=== PATIENT | male | born 1955 | race Caucasian/White ===

== ENCOUNTER 2016-06-12 11:16 | Observation (INO) | payer BC ==
[2016-06-12] MEDS ORDERED: KETOROLAC 30 MG/ML 1 ML VIAL IVP STA (12:09)
[2016-06-12] MEDS ORDERED: HYDROmorphone 1 MG/ML 1 ML SYRINGE IVP STA (12:09)
[2016-06-12] MEDS ORDERED: ONDANSETRON 4 MG/2 ML VIAL IVP STA (12:10)
--- NOTE | 2016-06-12 12:13 | ED ---
Fall HPI - General Chief Complaint: Fall Stated Complaint: fall Time Seen by Provider: 06/12/16 11:36 Source: patient, EMS Mode of arrival: EMS - History of Present Illness Initial Comments: Complaining about back pain, he was working on his trailer hitch, he fell and landed on his back complaining about pain in the lumbar area, pain is quite localized and is not radiating down the legs also he denies any bowel or bladder dysfunction. Denies any head injury or any neck injury is complaining about lower back pain extending to the lower thoracic region and no other complaints at this point no chest pain or shortness of breath or abdominal pain no frequency urgency dysuria - Related Data Home Medications Medication Instructions Recorded Confirmed Ascorbic Acid [Vitamin C] 500 mg PO DAILY 06/12/16 06/12/16 Aspirin 81 mg PO DAILY 06/12/16 06/12/16 Garlic 1 tab PO DAILY 06/12/16 06/12/16 Allergies Allergy/AdvReac Type Severity Reaction Status Date / Time amoxicillin Allergy Rash/Hives Verified 06/12/16 11:42 ampicillin Allergy Rash/Hives Verified 06/12/16 11:42 Review of Systems ROS Statement: Those systems with pertinent positive or pertinent negative responses have been documented in the HPI. ROS Other: All systems not noted in ROS Statement are negative. Past Medical History Past Medical History: No Reported History History of Any Multi-Drug Resistant Organisms: None Reported Additional Past Surgical History / Comment(s): Tear duct left eye Past Psychological History: No Psychological Hx Reported Smoking Status: Current every day smoker Past Alcohol Use History: Rare Past Drug Use History: None Reported General Exam - General Exam Comments Initial Comments: General: The patient is awake and alert, in no distress, and does not appear acutely ill. Skin: Skin is warm and dry and no rashes or lesions are noted. Eye: Pupils are equal, round and reactive to light, extra-ocular movements are intact; there is normal conjunctiva bilaterally. Ears, nose, mouth and throat: There are moist mucous membranes and no oral lesions. Neck: The neck is supple, there is no tenderness or JVD. Cardiovascular: There is a regular rate and rhythm. No murmur, rub or gallop is appreciated. Respiratory: To auscultation bilateral, no wheezing no rhonchi no distress respiratory french noticed Gastrointestinal: Soft, non-distended, non-tender abdomen without masses or organomegaly noted. There is no rebound or guarding present. Bowel sounds are unremarkable. Back: There is no tenderness to palpation in the midline. There is no obvious deformity. Musculoskeletal: He is tender over the L1 and L2 region also tender over the 311 and T12 region, straight leg raise is negative bilaterally, deep tendon reflexes are within normal range Neurological: CN II-XII intact, Cranial nerves III through XII are intact. There are no obvious motor or sensory deficits. Coordination appears grossly intact. Speech is normal. Psychiatric: Cooperative, appropriate mood & affect, normal judgment. Limitations: no limitations Course Vital Signs 06/12/16 06/12/16 11:25 14:34 Temperature 97.0 F L 99.5 F Pulse Rate 83 81 Respiratory 16 18 Rate Blood Pressure 171/68 124/59 O2 Sat by Pulse 97 95 Oximetry Disposition Clinical Impression: Compression fracture of L2, Compression fracture of L1 lumbar vertebra, Intractable back pain Disposition: ADMITTED IP TO THIS HOSP
--- NOTE | 2016-06-12 13:31 | CT ---
EXAMINATION TYPE: CT lumbar spine wo con DATE OF EXAM: 06/12/2016 1:08 PM COMPARISON: Thoracic spine x-ray same date. HISTORY: Patient complains of low back pain with radiation bilaterally to the hips after lifting inju ry today. CT DLP: 611.1 mGycm CONTRAST: CT scan of the lumbar is performed without contrast. TECHNIQUE: CT of the lumbar spine is performed on a spiral scan at 3 mm thick sections. Reconstructed images are performed in the coronal and sagittal planes. FINDINGS: There is a compression deformity superior endplate of L2. Minimal posterior wall displaceme nt is evident this estimated 0.5 cm. No AP spinal canal stenosis present. No definite cord contact is evident. Fracture may be acute. There is approximately 40% loss of mid vertebral body height. T12-L1: No focal disc herniation or significant disc bulge is evident. No spinal canal stenosis or neural foraminal stenosis is present. L1-L2: No focal disc herniation or significant disc bulge is evident. No spinal canal stenosis or n eural foraminal stenosis is present L2-L3: Mild disc bulging is anterior thecal sac flattening. No AP spinal canal stenosis or neural for aminal stenosis is present. L3-L4: Broad-based disc bulge is present with moderate anterior thecal sac flattening. No AP spinal c anal stenosis is present. Neural foramen are patent. L4-L5: Mild disc bulging is anterior thecal sac flattening. No AP spinal canal stenosis is present. N eural foramen are patent. L5-S1: There is loss of disc height through this level. Mild disc bulging is anterior thecal sac cont act. No AP spinal canal stenosis present. Neural foramen are patent. Vertebral alignment appears normal. IMPRESSION: Compression deformity with approximately 40% loss of vertebral body height of L2. This appears to be acute. Correlate with the location and time of symptoms. 2. Mild degenerative disc bulges through the lumbar spine.
--- NOTE | 2016-06-12 14:15 | XR ---
EXAMINATION TYPE: XR thoracic spine 2V DATE OF EXAM: 06/12/2016 12:53 PM COMPARISON: NONE HISTORY: Pain Alignment is anatomic. There is no compression deformities. Mild hypertrophic and degenerative sosa e spine. There is a moderate superior endplate compression fracture of L1 vertebral. Findings sugges t a bone infarct involving humerus. IMPRESSION: 1. Moderate superior endplate compression fracture L1. 2. 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
[2016-06-12] MEDS ORDERED: SODIUM CHLORIDE 0.9% 1,000 ML IV ONE (15:05)
[2016-06-12] MEDS ORDERED: HYDROmorphone 1 MG/ML 1 ML SYRINGE IVP PRN (15:10)
[2016-06-12] MEDS ORDERED: ACETAMINOPHEN TAB 500 MG TAB PO PRN (15:11)
[2016-06-12] MEDS: KETOROLAC 30 MG/ML 1 ML VIAL IVP SCH ×2 (18:41→23:16)
--- NOTE | 2016-06-12 21:51 | HP ---
DATE OF ADMISSION: 06/12/2016 CHIEF COMPLAINT: Back pain. HISTORY OF PRESENT ILLNESS: This is the first admission for this 61-year-old white male. He was working at his place of employment, pulling on something when he fell over backwards and landed on his back and experienced quite a bit of pain in his low back. He came to the emergency room and was found to have an L2 compression fracture. He has had no difficulty urinating or controlling his urine and he has had no dysesthesias or weakness in the lower extremities. He is otherwise healthy. REVIEW OF SYSTEMS: He has had no head, ears, eyes, nose, mouth, and throat problems and he has had no lung disease, cough, hemoptysis, et cetera. He has had no heart disease, hypertension, chest pain, palpitations, abdominal pain, vomiting, diarrhea, urinary complaints, diabetes, etc. Past medical history, family history, and personal and social histories are all otherwise unremarkable and noncontributory. HE IS NOT ALLERGIC TO ANY MEDICATION. He does not take any. He has had procedure on his knee in the past, and T&A a procedure on tear duct on once side, he does not remember which. He smokes half pack of cigarettes a day. Blood pressure 140/85 with a pulse of 79, respirations 15, he is afebrile. GENERAL: Appeared to be slender, well-developed, well-nourished no acute distress. SKIN: Skin color is normal. Skin is warm and dry. Lymph nodes are not enlarged. Head, ears, eyes, nose, mouth, and throat were normal. NECK: Neck veins not distended. Thyroid is not enlarged. Chest is clear. Cardiac normal. ABDOMEN: Soft, nontender. EXTREMITIES: Normal. NEUROLOGICAL: Intact. IMPRESSION: Compression fracture of L2. PLAN: 1. Bed rest. 2. Analgesic therapy. 3. Stool softeners. 4. Orthopedic consult.
[2016-06-13] MEDS: KETOROLAC 30 MG/ML 1 ML VIAL IVP SCH ×2 (06:21→11:32)
[2016-06-13] MEDS ORDERED: HYDROcodone/APAP 7.5-325MG 1 EACH TAB PO PRN (07:37)
--- NOTE | 2016-06-13 07:45 | P.DS ---
Providers Date of admission: 06/12/16 15:05 Expected date of discharge: 06/13/16 Attending physician: Malcolm Cali Consults: Dr. Arteaga Primary care physician: Stated None Hospital Course: A 61-year-old who presented to the emergency room to be evaluated for chief complaint of back pain. Patient stated he was at his place of employment when he was pulling on something fell backwards landing on his back. Stated he experienced a lot of pain in the lower back. Came into the emergency room evaluated was found to have an L 2 compression acute fracture with mild degenerative disc disease throughout the lumbar spine patient was admitted to the services of the attending with an orthopedic consultation requested patient was seen by orthopedic associate Dr. lakhani who recommended that the patient be fitted for a lumbar back brace and to be followed in the office in the next 7- 10 days. Pain control. On the day of discharge patient was felt to be medically stable and appropriate proceed with a discharge Impression discharge diagnosis Compression deformity T with approximately 40% loss of vertebral body height of L2 appears acute suspect due to a fall landing on the back Present on admission intractable back pain suspect due to compression fracture of L2, compression fracture L1 lumbar vertebrae CAT scan the lumbar spine mild degenerative disc bulges throughout the lumbar spine The above dictated assessment and findings were discussed with dr cali. Impression and the plan of care have been dictated as directed. Mckenzie Manning nurse practitioner acting as a scribe for dr cali Plan - Discharge Summary New Discharge Prescriptions: HYDROcodone/APAP 7.5-325MG [[place] 7.5-325] 1 each PO Q6H PRN #30 tab PRN Reason: Pain Discharge Medication List Ascorbic Acid [Vitamin C] 500 mg PO DAILY 06/12/16 [History] Aspirin 81 mg PO DAILY 06/12/16 [History] Garlic 1 tab PO DAILY 06/12/16 [History] HYDROcodone/APAP 7.5-325MG [[place] 7.5-325] 1 each PO Q6H PRN #30 tab 06/13/16 [ Rx] Follow up Appointment(s)/Referral(s): Ga Gomez, ALBERTINA [PHYSICIAN PROJECT ACCOUNT MANAGER] - 2 Weeks (Patient may follow-up with Ga Gomez PA-C or Dr. Papito Arteaga at [facility] in 2-3 weeks following discharge. ) None,Stated [Primary Care Provider] - 1-2 days Malcolm Cali MD [STAFF PHYSICIAN] - 06/16/16 Activity/Diet/Wound Care/Special Instructions: 1. Patient may wear LSO brace for comfort and support while sitting upright at greater than 45, while working with therapy, and while ambulating; patient does not have to wear the brace while lying in bed or bathing 2. Patient should avoid excessive bending, twisting, and lifting; no lifting greater than 10 pounds May return to work after seen by orthopedic associate follow-up visit Discharge Disposition: HOME SELF-CARE
[2016-06-13 07:54] VITALS: BP 148/70; PULSE 62; RESP 18; TEMP 96.9
[2016-06-13] MEDS ORDERED: FAMOTIDINE 20 MG TAB PO SCH (09:00)
[2016-06-13] MEDS ORDERED: ASPIRIN 81 MG CHEW PO SCH (09:00)
[2016-06-13] MEDS ORDERED: ASCORBIC ACID 500 MG TAB PO SCH (09:00)
--- NOTE | 2016-06-13 14:01 | PN ---
CHIEF COMPLAINT: Compression fracture of L2. HISTORY OF PRESENT ILLNESS: The gentleman is doing fairly well and handling his pain reasonably well. He may be able go home today, but he is waiting for a brace and he has been seen by Orthopedics. He has no neurologic sequela. PHYSICAL EXAM: Chest is clear. Cardiac exam is normal. EXTREMITIES: Normal. IMPRESSION: L2 fracture. PLAN: Probably home today and this will be arranged by the nurse practitioner.
--- NOTE | 2016-06-13 19:28 | P.CNOR ---
History of Present Illness - [facility] Consult date: 06/13/16 Requesting physician: Hafsa Ibanez Consult reason: fracture (L2 compression fracture status post fall), low back pain History of present illness: Patient is a pleasant 61-year-old male who is seen and examined the bedside for further evaluation after we are consulted after he sustained a fall sustaining an L2 compression fracture. Patient states he was working on a trailer hitch when he fell backwards landing on his back. He presented to [facility] for further evaluation at that time. He was found to have a L2 compression fracture deformity on imaging. Patient states he has been experiencing some low back pain along the midline along his fall. He denies any lower extremity radiculopathy or weakness bilaterally. He has been eating and voiding without significant difficulty. Past Medical History Past Medical History: Pneumonia Additional Past Medical History / Comment(s): "HEARTBURN", "TAKES ALFALFA FOR CHOLESTEROL" History of Any Multi-Drug Resistant Organisms: None Reported Past Surgical History: Orthopedic Surgery, Tonsillectomy Additional Past Surgical History / Comment(s): Tear duct left eye, KNEE ARTHROSCOPY(NOT SURE WHICH KNEE) Past Anesthesia/Blood Transfusion Reactions: No Reported Reaction Past Psychological History: No Psychological Hx Reported Additional Psychological History / Comment(s): PT IS INDEPENDANT-NO ASSISTIVE DEVICES OR MED EQUIPMENT AT HOME/ [place] [address] [place]WITH ), HAS 3 STEPS TO GET INTO HOUSE. 12 STEPS TO UPSTAIRS. HAVE 1 DOG, 5 CATS. NO SERVICE, WORKS IN [employer]. Smoking Status: Current every day smoker Past Alcohol Use History: Rare Additional Past Alcohol Use History / Comment(s): STARTED SMOKING AT AGE 16 OFF AND ON. USED TO SMOKE 1 PPD NOW DOWN TO 1/2 PPD. Past Drug Use History: None Reported - Past Family History Mother Family Medical History: Dementia, Hypertension Father Family Medical History: Asthma Brother(s) Family Medical History: Hypertension Medications and Allergies Home Medications Medication Instructions Recorded Confirmed Type Ascorbic Acid [Vitamin C] 500 mg PO DAILY 06/12/16 06/12/16 History Aspirin 81 mg PO DAILY 06/12/16 06/12/16 History Garlic 1 tab PO DAILY 06/12/16 06/12/16 History Allergies Allergy/AdvReac Type Severity Reaction Status Date / Time amoxicillin Allergy Rash/Hives Verified 06/12/16 11:42 ampicillin Allergy Rash/Hives Verified 06/12/16 11:42 Physical Examination Physical exam: Patient is awake, alert, and oriented 3 Vital signs stable Good chest excursion with deep inspiration and expiration Abdomen soft nontender Examination of lumbar spine reveals skin is intact with no abrasions, lacerations, or bruises; no erythema, purulence or signs of infection Pain with palpation along the midline of the lumbar spine No obvious step-off deformity with palpation of the lumbar spine Dorsiflexion, plantarflexion, and extensor hallucis longus positive sustained bilaterally Lower extremity strength 5/5 bilaterally No lower extremity hyperreflexia bilaterally Straight leg test negative bilateral lower extremities Negative Lasegue's test bilaterally No signs or symptoms of DVT; no calf pain No pain with internal and external rotation of the hips bilaterally Neurovascularly intact Results Pertinent studies: Lumbar spine CT: L2 compression fracture deformity with approximate 40% vertebral body height loss that appears to be acute; mild degenerative disc bulges throughout the lumbar spine with no evidence of significant spinal canal stenosis X-ray thoracic spine: Moderate superior endplate compression fracture of L2 with approximate 40% height loss; monitor hypertrophic and degenerative changes at spine Assessment and Plan (1) Low back pain Status: Acute (2) Status post fall Status: Acute (3) Traumatic compression fracture of L2 lumbar vertebra Status: Acute Plan: Assessment: Acute traumatic L2 compression fracture deformity at approximately 20% height loss Low back pain Status post fall Plan: 1. A prescription is written for an Exos LSO brace. Brace should be worn while sitting upright at greater than 45, while ambulating, and while doing activities. Brace does not have to be worn while lying in bed or while bathing. Once this brace has been delivered and fitted appropriately, patient is clear for discharge from an orthopedic spine standpoint. Patient should avoid excessive bending, twisting, lifting; no lifting greater than 10 pounds. 2. Medicine to continue following the patient 3. From an orthopedic spine standpoint, patient is clear for discharge once his brace has been delivered and fitted appropriately 4. Following discharge, patient may follow-up with Ga Gomez PA-C or Dr. Papito Arteaga at [facility] in approximately 2-3 weeks for further evaluation 5. I have discussed this patient detail with Dr. Papito Arteaga and he agrees with this plan Time with Patient: Less than 30
== END 2016-06-13 13:54 | disposition home or self-care (01) ==
LOC: EC 11:16 → 4MS4W 15:05
PROVIDERS: ADMIT Family Medicine; ATTEND Family Medicine
DX: S32.029A Unspecified fracture of second lumbar vertebra, initial encounter for closed fracture (principal); S32.019A Unspecified fracture of first lumbar vertebra, initial encounter for closed fracture; M51.36 Other intervertebral disc degeneration, lumbar region; F17.210 Nicotine dependence, cigarettes, uncomplicated; Z79.82 Long term (current) use of aspirin; Z88.0 Allergy status to penicillin; W18.30XA Fall on same level, unspecified, initial encounter; Y93.89 Activity, other specified; Y99.0 Civilian activity done for income or pay
CPT/HCPCS: 96374; 96375 ×2; 72070; 72131; 99285; G0378 ×2; J2405; J1885 ×2; J1170; 96361; 96376

== ENCOUNTER 2016-11-11 06:15 | Day surgery (SDC) | payer BC ==
[2016-11-07 09:19] VITALS: BMI 24.3
[~2016-11-11 06:15] MED LIST: LACTATED RINGERS 1,000 ML IV SCH
[2016-11-11 06:48] VITALS: RESP 18; TEMP 97.1
[2016-11-11] MEDS ORDERED: LACTATED RINGERS 1,000 ML IV ONE (06:58)
[2016-11-11] MEDS ORDERED: PROPOFOL 10 MG/ML 20 ML VIAL IV ONE (07:06)
[2016-11-11 07:50] VITALS: BP 131/77; PULSE 63
[2016-11-11 07:58] LABS: Basophils % (A) 1 %; CH 33.7; CHCM 34.5; Eosinophils # (A) 0.1 k/uL (0-0.7); Eosinophils % (A) 4 %; HCT 41.9 % (39.0-53.0); HDW 2.44; HGB 14.3 gm/dL (13.0-17.5); Luc # (Auto) 0.11; Luc % (Auto) 3; Lymphocytes # (A) 1.2 k/uL (1.0-4.8); Lymphocytes % (A) 34 %; MCH 33.5 pg (25.0-35.0); MCHC 34.2 g/dL (31.0-37.0); Mean Platelet Volume 8.7; Monocytes # (A) 0.3 k/uL (0-1.0); Monocytes % (A) 7 %; Neutrophils # (A) 1.9 k/uL (1.3-7.7); Neutrophils % (A) 51 %; RBC 4.28 m/uL (4.30-5.90); RDW 13.5 % (11.5-15.5); WBC 3.6 k/uL (3.8-10.6); WBC (Perox) 3.55
--- NOTE | 2016-11-11 10:57 | PCN ---
DATE OF SERVICE: 11/11/2016 PREOP DIAGNOSIS: Leukopenia. POSTOP DIAGNOSIS: Leukopenia. PROCEDURE: Bone marrow aspirate and biopsy. SITE: Right iliac crest. ANESTHESIA: Local with IV systemic sedation. DETAILS: Utilizing sterile technique, the skin overlying the right iliac crest was prepared with Betadine and alcohol. After all sterile draping, local anesthesia with 1% Lidocaine and systemic sedation, a size 11 4-inch Jamshidi needle was utilized to access the periosteum with ease. A total of 18 mm of aspirate as well as 1 cm of bone core biopsies were obtained. The patient tolerated the procedure very well. There was no immediate procedure related complication. A total ( ) less than 1 mL was obtained. MTDD
== END 2016-11-11 08:11 | disposition home or self-care (01) ==
LOC: OR 06:15
PROVIDERS: ATTEND Internal Medicine Hematology & Oncology
DX: D72.819 Decreased white blood cell count, unspecified (principal); D69.6 Thrombocytopenia, unspecified; F17.200 Nicotine dependence, unspecified, uncomplicated; Z88.1 Allergy status to other antibiotic agents
CPT/HCPCS: 85025; 38221; J2704; G0364

== ENCOUNTER → 2017-04-24 | Outpatient (CLI) | payer BC ==
[2017-04-24 13:13] LABS: Blood Urea Nitrogen 26 mg/dL (9-20)
--- NOTE | 2017-04-24 15:11 | MR ---
EXAMINATION TYPE: MR brain and iac wo/w con DATE OF EXAM: 04/24/2017 COMPARISON: NONE HISTORY: 62-year-old male Ringing in ears. Disorders of unspecified acoustic nerve. TECHNIQUE: Multiplanar, multisequence images of the brain and brainstem were acquired before and aft er administration of 7.5 mL IV Gadavist. Diffusion weighted imaging was performed. Additional coned -down sequences through the internal auditory canals and posterior cranial fossa before and after IV contrast administration. FINDINGS: Diffusion weighted images demonstrate no evidence of an acute ischemic lesion in the brain. T2/FLAIR weighted sequences show mild scattered burden of bright signal change in the subcortical and deep white matter of both cerebral hemispheres, numbering approximately 9 on the left and 12 on the right. Midline structures demonstrate normal morphology. The craniocervical junction is normal. Brain volume is age appropriate. The ventricles are of normal caliber. There is no evidence of an acute intracranial hemorrhage, infarct, mass, mass-effect or an extra-axia l fluid collection. There is no cerebellopontine angle mass. The internal auditory canals are symmetric. Brainstem and skull base abnormalities are not seen. Post contrast images demonstrate no evidence of pathologic enhancement in the posterior cranial fossa or the internal auditory canals. There is no abnormal enhancement of the labyrinths. Trapped fluid in the left greater than right mastoid air cells. Mild mucosal thickening ethmoid air c ells. IMPRESSION: 1. No acute intracranial abnormality seen. Mild scattered burden of T2 bright white matter change, no nspecific, likely relating to chronic small vessel ischemic disease. 2. Trapped fluid in the left greater than right mastoid air cells. Correlate for any mastoid pain to exclude mastoiditis. 3. Otherwise, unremarkable acoustic MRI.
== END | disposition home or self-care (01) ==
LOC: RADMRIMAIN 12:40
PROVIDERS: ATTEND Otolaryngology
DX: R90.82 White matter disease, unspecified (principal); H93.12 Tinnitus, left ear; H93.3X2 Disorders of left acoustic nerve; H91.90 Unspecified hearing loss, unspecified ear
CPT/HCPCS: 82565; 84520; 70553; A9581

== ENCOUNTER → 2018-10-29 | Outpatient (CLI) | payer BC, OTHER ==
--- NOTE | 2018-10-29 12:02 | XR ---
Orbits HISTORY: MRI clearance 3 views of the orbits Bone mineralization is maintained. No radiopaque foreign body evident within the orbits. Nasal sinuse s are well aerated. No evident fracture. IMPRESSION: No radiopaque foreign body evident within the orbits.
== END | disposition home or self-care (01) ==
LOC: RADXRMAIN 11:30
PROVIDERS: ATTEND Orthopaedic Surgery
DX: Z01.818 Encounter for other preprocedural examination (principal); M25.531 Pain in right wrist
CPT/HCPCS: 70030

== ENCOUNTER → 2020-11-07 | Outpatient (CLI) | payer MEDICARE ==
--- NOTE | 2020-11-08 08:29 | CTL ---
EXAMINATION TYPE: CT Low Dose Lung DATE OF EXAM ORDERED: 11/07/2020 HISTORY: Long-term tobacco use. Lung cancer screening CT DLP: [address] CTDI: 2.03 mGy Automated exposure control for dose reduction was used. SCREENING VISIT: Initial study COMPARISON: None TECHNIQUE: Low dose computed tomography scan was performed through the chest at 1 mm thick sections a nd reconstructed images in the coronal plane at [address] DIAGNOSTIC QUALITY: Satisfactory FINDINGS: LUNG NODULES: None. LUNGS: COPD: Severity: Mild Fibrosis: Severity: None Lymph nodes: None Other findings: None RIGHT PLEURAL SPACE: Effusion: None Calcification: None Thickening: None Pneumothorax: None LEFT PLEURAL SPACE: Effusion: None Calcification: None Thickening: None Pneumothorax: None HEART: Heart Size: Normal Coronary calcification: Mild to moderate Pericardial effusion: None OTHER FINDINGS: Upper abdomen: Somewhat small size liver with lobulated peripheral contour consistent with cirrhosis partially imaged. Visualized portion of spleen is prominent. Bony thorax: None Supraclavicular region: None Other: None IMPRESSION: No suspicious nodules. Cirrhotic liver noted. CT LUNG RAD AND CT CHEST RECOMMENDATION: Lung-Rad 1 Negative: Continue annual screening with LDCT in 12 months. S Modifier (other clinically significant findings): S Underlying cirrhotic liver partially imaged, correlate clinically.
== END | disposition home or self-care (01) ==
LOC: RADCTMAIN 16:51
PROVIDERS: ATTEND Family Medicine
DX: Z12.2 Encounter for screening for malignant neoplasm of respiratory organs (principal); K74.60 Unspecified cirrhosis of liver
CPT/HCPCS: 71271

== ENCOUNTER → 2020-11-22 | Outpatient (CLI) | payer MEDICARE ==
--- NOTE | 2020-11-22 10:45 | US ---
EXAMINATION TYPE: US abdomen limited DATE OF EXAM: 11/22/2020 COMPARISON: NONE CLINICAL HISTORY: 65-year-old male R74.8 Abnormal levels serum enzymes. TECHNIQUE: Multiple sonographic images of the right upper quadrant are obtained. FINDINGS: EXAM MEASUREMENTS: Liver Length: 12.6 cm Gallbladder Wall: 0.4 cm CBD: 6.2 mm. Right Kidney: 9.5 x 3.3 x 3.7 cm Schedule Maker notes: *Technical limitations due to large amount of overlying bowel content Pancreas: No gross abnormality. liver: Very heterogeneous parenchyma with lobulated contour. Gallbladder: no evidence of stones, GB wall slightly thickened. No hydropic change or surrounding fl uid. Evidence for sonographic Acuna's sign: no CBD: Borderline dilated. Right Kidney: lower pole obscured by overlying bowel, no evidence of hydronephrosis IMPRESSION: 1. Very heterogeneous liver with nodular contour. Correlate for cirrhosis. 2. Mild gallbladder wall thickening which is nonspecific. It may be seen with liver disease. No galls tones or ancillary findings of acute cholecystitis. 3. Borderline dilated bile duct at 6.2 mm, acceptable for patient's age.
== END | disposition home or self-care (01) ==
LOC: RADUSWWP 06:57
PROVIDERS: ATTEND Family Medicine
DX: K76.89 Other specified diseases of liver (principal)
CPT/HCPCS: 76705

== ENCOUNTER → 2021-01-30 | Outpatient (CLI) | payer MEDICARE ==
--- NOTE | 2021-01-30 11:33 | MR ---
MR liver with and without contrast HISTORY: Cirrhosis, abnormal blood findings Planar multisequence and postcontrast images obtained through the liver following 7.5 cc gadolinium b ased IV, correlation ultrasound abdomen 11/22/2020 The nodular contour of the liver is noted as on ultrasound. Heterogeneous signal is present throughou t the liver, macronodular appearance is present. Following contrast administration, there is no suspi cious early enhancement and washout seen to suggest hepatocellular carcinoma. The hepatic veins and p ortal veins are patent. Question some varices along the gastroesophageal junction level. There is an oval substernal focus in the epicardial fat anteriorly, axial image 25 the T1-weighted im age set series 401 shows an isointense appearance, lesion enhances and shows T2 bright appearance and measures approximately 7 mm x 29 mm and is indeterminate, intermediate density on CT. Gallbladder shows no abnormal luminal stone. Pancreas is unremarkable. The spleen is enlarged. There is no ascites. No retroperitoneal adenopathy. The aorta shows some atheromatous change, and there is no aneurysm. Lung bases show no effusion. The adrenal glands and kidneys are unremarkable, kidneys ex crete contrast. IMPRESSION: Findings consistent with cirrhosis. Splenomegaly and findings of possible portal hyperten kathy. Indeterminate epicardial focus of questionable clinical significance consider follow-up.
== END | disposition home or self-care (01) ==
LOC: RADMRIMAIN 08:52
PROVIDERS: ATTEND Physician Assistant
DX: K76.89 Other specified diseases of liver (principal)
CPT/HCPCS: 74183; A9585

== ENCOUNTER → 2022-02-03 | Outpatient (CLI) | payer MEDICARE ==
--- NOTE | 2022-02-03 08:35 | CTL ---
EXAMINATION TYPE: CT Low Dose Lung DATE OF EXAM ORDERED: 02/03/2022 HISTORY: . Lung cancer screening CT DLP: 72.[address] CTDI: 2.2 mGy Automated exposure control for dose reduction was used. SCREENING VISIT: Subsequent COMPARISON: 11/07/2020 TECHNIQUE: Low dose computed tomography scan was performed through the chest at 1 mm thick sections a nd reconstructed images in the coronal plane at [address] DIAGNOSTIC QUALITY: Satisfactory FINDINGS: LUNG NODULES: None. LUNGS: COPD: Severity: None Fibrosis: Severity: None Lymph nodes: None Other findings: None RIGHT PLEURAL SPACE: Effusion: None Calcification: None Thickening: None Pneumothorax: None LEFT PLEURAL SPACE: Effusion: None Calcification: None Thickening: None Pneumothorax: None HEART: Heart Size: Normal Coronary calcification: Mild Pericardial effusion: None OTHER FINDINGS: Upper abdomen: There is some mild elevation of the liver suggestive for cirrhosis Bony thorax: Normal Supraclavicular region: Normal Other: Ascending thoracic aorta at the level the main pulmonary artery measures 3.7 cm. The main pul monary artery at the bifurcation measures 2.1 cm. IMPRESSION: 1. No suspicious lung findings to suggest primary or metastatic carcinoma in the chest. 2. Hepatic cirrhosis. FOLLOW UP CT CHEST RECOMMENDATION: Low-dose CT chest [address] LUNG RAD: 1
== END | disposition home or self-care (01) ==
LOC: RADCTMAIN 07:52
PROVIDERS: ATTEND Family Medicine
DX: Z12.2 Encounter for screening for malignant neoplasm of respiratory organs (principal); K74.60 Unspecified cirrhosis of liver; Z87.891 Personal history of nicotine dependence
CPT/HCPCS: 71271

== ENCOUNTER → 2022-02-13 | Outpatient (CLI) | payer MEDICARE ==
--- NOTE | 2022-02-13 09:55 | US ---
EXAMINATION TYPE: US duplex aorta DATE OF EXAM: 02/13/2022 COMPARISON: NONE CLINICAL HISTORY: F17.210 smoking Z13.6 screening for AAA. TECHNIQUE: Multiple sonographic images of the abdominal aorta are obtained. FINDINGS: EXAM MEASUREMENTS: Abdominal Aorta:AP x Width Proximal: 1.9 x 1.8 cm Mid: 1.6 x 1.1 cm Distal: 1.4 x 1.5 cm Bifurcation: YODIT: 0.98 x 0.78cm BEBETO: 0.77 x 0.73cm IMPRESSION: 1. No ultrasound evidence of aneurysmal dilatation the abdominal aorta.
== END | disposition home or self-care (01) ==
LOC: RADUSWWP 07:29
PROVIDERS: ATTEND Family Medicine
DX: Z13.6 Encounter for screening for cardiovascular disorders (principal); F17.210 Nicotine dependence, cigarettes, uncomplicated
CPT/HCPCS: 93979

== ENCOUNTER → 2023-11-09 | Outpatient (CLI) | payer MEDICARE ==
--- NOTE | 2023-12-05 07:54 | CTL ---
EXAMINATION TYPE: CT Low Dose Lung DATE OF EXAM ORDERED: 11/09/2023 HISTORY: Screening. Z 12.[address] DLP: 83.7 mGycm Automated exposure control for dose reduction was used. SCREENING VISIT: Subsequent COMPARISON: 02/03/2022 TECHNIQUE: Low dose computed tomography scan was performed through the chest at 1 mm thick sections a nd reconstructed images in the coronal plane at [address] DIAGNOSTIC QUALITY: Satisfactory FINDINGS: LUNG NODULES: None. LUNGS: COPD: Severity: None Fibrosis: Severity: None Lymph nodes: None Other findings: None RIGHT PLEURAL SPACE: Effusion: None Calcification: None Thickening: None Pneumothorax: None LEFT PLEURAL SPACE: Effusion: None Calcification: None Thickening: None Pneumothorax: None HEART: Other: Ascending thoracic aorta at the level the main pulmonary artery measures 3.6 cm. The main pulm onary artery at the bifurcation measures 2.3 cm. Heart Size: Normal Coronary calcification: Mild Pericardial effusion: None OTHER FINDINGS: Upper abdomen: Normal Bony thorax: Normal Supraclavicular region: Normal IMPRESSION: 1. No suspicious lung findings to suggest primary or metastatic carcinoma. 2. Findings suggestive for hepatic cirrhosis. FOLLOW UP CT CHEST RECOMMENDATION: 1. Follow-up low-dose CT chest one year CT LUNG RAD: Lung-Rad 1 Negative
== END | disposition home or self-care (01) ==
LOC: RADCTMAIN 13:24
PROVIDERS: ATTEND Family Medicine
DX: Z12.2 Encounter for screening for malignant neoplasm of respiratory organs (principal); F17.210 Nicotine dependence, cigarettes, uncomplicated; K74.60 Unspecified cirrhosis of liver
CPT/HCPCS: 71271

== ENCOUNTER → 2024-06-01 | Outpatient (CLI) | payer MEDICARE ==
--- NOTE | 2024-06-01 09:48 | US ---
EXAMINATION TYPE: US abdomen limited DATE OF EXAM: 06/01/2024 COMPARISON: Prior limited abdominal ultrasound 2022 CLINICAL INDICATION: Male, 69 years old with history of K74.60 Cirrhosis of liver; hx liver cirrhosis TECHNIQUE: Grayscale and color Doppler imaging of the right upper quadrant was performed. FINDINGS: EXAM MEASUREMENTS: Liver Length: 13.3 cm Gallbladder Wall: 0.2 cm CBD: 0.4 cm Right Kidney: 8.0 x4.2 x 3.4 cm Pancreas: Homogeneous in appearance Liver: Nodular, coarse and heterogenous Gallbladder: Echogenic foci seen. Echogenic lesion adjacent to wall = 3.9 mm Evidence for sonographic Acuna's sign: neg CBD: wnl Right Kidney: No hydronephrosis or masses seen Persistent normal-sized liver with lobulated peripheral contour and slight heterogeneity. No distinct focal intrahepatic masses or intrahepatic ductal dilatation. No adjacent ascites. Internal small gal lstones redemonstrated. No right-sided hydronephrosis. IMPRESSION: Underlying hepatocellular disease again seen. No new ascites. No significant change from most recent ultrasound. [facility], , 06/01/2024 9:46 AM
== END | disposition home or self-care (01) ==
LOC: RADUSWWP 08:52
PROVIDERS: ATTEND Internal Medicine Gastroenterology
DX: K74.60 Unspecified cirrhosis of liver (principal); K80.20 Calculus of gallbladder without cholecystitis without obstruction
CPT/HCPCS: 76705

== ENCOUNTER → 2024-06-20 | Outpatient (CLI) | payer MEDICARE ==
--- NOTE | 2024-06-21 07:37 | CA ---
Transthoracic Echo Report Name: Yazan Villatoro Age: 69 Gender: M : 1955 Exam Date: 06/20/2024 13:39 Exam Location: [place] [facility] Ht (in): 70 Wt (lb): 170 Ordering Physician: Dakota Salazar MD Attending/Referring Phys: Norah Molina [facility] Layer Out Plate Glass Dm Hathaway RDCS Procedure CPT: Indications: R01.1 Murmur; R60.0 Bilateral leg edema Cardiac Hx: Technical Quality: Good Contrast 1: Total Dose (mL): Contrast 2: Total Dose (mL): MEASUREMENTS (Male / Female) Normal Values 2D ECHO LV Diastolic Diameter PLAX 4.5 cm 4.2 - 5.9 / 3.9 - 5.3 cm LV Systolic Diameter PLAX 2.9 cm IVS Diastolic Thickness 0.9 cm 0.6 - 1.0 / 0.6 - 0.9 cm LVPW Diastolic Thickness 0.9 cm 0.6 - 1.0 / 0.6 - 0.9 cm LV Relative Wall Thickness 0.4 RV Internal Dim ED PLAX 2.7 cm LVOT Diameter 1.8 cm LA Systolic Diameter LX 3.7 cm 3.0 - 4.0 / 2.7 - 3.8 cm LV Diastolic Volume MOD BP 101.4 cm??? 67 - 155 / 56 - 104 cm??? LV Systolic Volume MOD BP 38.0 cm??? 22 - 58 / 19 - 49 cm??? LV Ejection Fraction MOD BP 62.5 % >= 55 % LV Cardiac Index MOD BP 2298.9 cm???/min???m??? LV Diastolic Volume MOD 4C 107.0 cm??? LV Systolic Volume MOD 4C 38.3 cm??? LV Ejection Fraction MOD 4C 64.2 % LV Cardiac Index MOD 4C 2493.9 cm???/min???m??? LV Diastolic Length 4C 8.0 cm LV Systolic Length 4C 6.2 cm LV Diastolic Volume MOD 2C 90.1 cm??? LV Systolic Volume MOD 2C 34.9 cm??? LV Ejection Fraction MOD 2C 61.3 % LV Cardiac Index MOD 2C 2001.7 cm???/min???m??? LV Diastolic Length 2C 7.5 cm LV Systolic Length 2C 5.7 cm LA Volume 46.8 cm??? 18 - 58 / 22 - 52 cm??? LA Volume Index 23.9 cm???/m??? 16 - 28 cm???/m??? DOPPLER MV Area PHT 2.5 cm??? Mitral E Point Velocity 75.6 cm/s Mitral A Point Velocity 67.5 cm/s Mitral E to A Ratio 1.1 MV Deceleration Time 309.5 ms TR Peak Velocity 210.5 cm/s TR Peak Gradient 17.7 mmHg Right Atrial Pressure 5.0 mmHg Pulmonary Artery Systolic Pressu 22.7 mmHg Right Ventricular Systolic Press 22.7 mmHg FINDINGS Left Ventricle Left ventricular ejection fraction is estimated at 60-65 %. Normal Left ventricular size, wall thickness, systolic function with no obvious regional wall motion abnormalities. Right Ventricle Mild right ventricular dilatation. Right ventricular systolic pressure within normal limits. Right Atrium Mild right atrial dilatation. Hypermobile interatrial septum. Left Atrium Normal left atrial size. Mitral Valve Mitral annular calcification. No mitral stenosis. Trace to mild mitral regurgitation. Aortic Valve Trileaflet aortic valve. Aortic valve sclerosis. No aortic stenosis. No aortic regurgitation. Tricuspid Valve Structurally normal tricuspid valve. No tricuspid stenosis. Trace to mild tricuspid regurgitation. Pulmonic Valve Structurally normal pulmonic valve. No pulmonic stenosis. Trace pulmonic regurgitation. Pericardium No pericardial effusion. Aorta Normal size aortic root and proximal ascending aorta. CONCLUSIONS Normal LV size and systolic function. Mitral annular calcification and aortic valve sclerosis without restriction. Mild mitral and tricuspid regurgitation. No significant pulmonary hypertension. No pericardial effusion Previewed by: Dr. Darling Rose MD (Electronically Signed) Final Date: 21 June 2024 07:36
== END | disposition home or self-care (01) ==
LOC: RADECHMAIN 13:03
PROVIDERS: ATTEND Family Medicine
DX: I08.3 Combined rheumatic disorders of mitral, aortic and tricuspid valves (principal); R01.1 Cardiac murmur, unspecified; R60.0 Localized edema
CPT/HCPCS: 93306

== ENCOUNTER → 2024-06-20 | Outpatient (CLI) | payer MEDICARE ==
[2024-06-20 20:32] LABS: INR 1.1 sec (0.93-1.11); Prothrombin Time 12.4 sec (9.9-11.9)
[2024-06-20 21:15] LABS: Albumin 3.7 g/dL (3.8-4.9); Albumin/Globulin Ratio 1.06 Ratio (1.60-3.17); Bilirubin, Conjugated 0.58 mg/dL (0.20-0.40); Bilirubin,Unconjugated 0.42 mg/dL (0.20-1.00); Globulin 3.5 g/dL (1.6-3.3); Total Protein 7.2 g/dL (6.2-8.2)
[2024-06-20 21:16] LABS: Basophils # (A) 0.02 X 10*3/uL (0.00-0.10); Basophils % (A) 0.6 %; Eosinophils # (A) 0.06 X 10*3/uL (0.04-0.35); Eosinophils % (A) 1.9 %; HCT 39.3 % (39.6-50.0); Immature Platelet Fraction 6.7 % (1.1-6.1); Lymphocytes # (A) 0.81 X 10*3/uL (0.90-5.00); Lymphocytes % (A) 25.6 %; MCH 32.3 pg (27.0-32.0); MCHC 33.1 g/dL (32.0-37.0); MCV 97.8 FL (80.0-97.0); Mean Platelet Volume 13.4 FL (9.5-12.2); Monocytes # (A) 0.28 X 10*3/uL (0.20-1.00); Monocytes % (A) 8.8 %; NRBC Per 100 WBC 0 X 10*3/uL (0.00-0.01); Neutrophils # (A) 1.99 X 10*3/uL (1.80-7.70); Neutrophils % (A) 62.8 %; Platelet Count 54 X 10*3/uL (140-440); RBC 4.02 X 10*6/uL (4.40-5.60); RBC Morphology Normal (Normal); RDW 14.1 % (11.5-14.5); WBC 3.17 X 10*3/uL (4.50-10.00)
== END | disposition home or self-care (01) ==
LOC: LABWHC1 12:46
PROVIDERS: ATTEND Internal Medicine Gastroenterology
DX: K74.60 Unspecified cirrhosis of liver (principal)
CPT/HCPCS: 36415; 80076; 82105; 85025; 85610